=== PATIENT | female | born 1980 | race Caucasian/White ===

== ENCOUNTER 2017-02-07 06:00 | Inpatient (IN) | payer OTHER ==
[2017-02-07] MEDS ORDERED: LACTATED RINGERS SOLUTION 500 ML IV SCH ×2 (06:15→06:45)
[2017-02-07] MEDS ORDERED: CITRIC ACID/SODIUM CITRATE 30 ML UNIT-DOSE CUP PO ONE (06:15)
[2017-02-07 06:41] VITALS: BMI 35.3
[2017-02-07 07:08] LABS: BASOPHIL 0.5 % (0-2.0); EOSINOPHIL 1.2 % (0-4.5); MCH 29.6 pg (25.7-33.7); MCHC 33.5 g/dl (32.0-36.0); MEAN CELL VOLUME 88.3 fl (80-96); MEAN PLT VOLUME 11.8 fl (7.5-11.1); PLATELET COUNT 85 K/MM3 (134-434); RDW 15.7 % (11.6-15.6); WHITE BLOOD COUNT 8.8 K/mm3 (4.0-10.0)
[2017-02-07 07:47] LABS: URIC ACID 3.6 mg/dL (2.6-7.2)
[2017-02-07 07:49] LABS: ALBUMIN 2.9 g/dl (3.4-5.0); ALK PHOS 208 U/L (45-117); ANION GAP 9 (8-16); BILIRUBIN,TOTAL 0.3 mg/dL (0.2-1.0); CALCIUM 8.8 mg/dL (8.5-10.1); CO2 23 mmol/L (21-32); CREATININE 0.4 mg/dL (0.55-1.02); GLUCOSE,RANDOM 78 mg/dL (74-106); SGOT/AST 14 U/L (15-37); SGPT/ALT 12 U/L (12-78); TOT PROT 6.3 g/dl (6.4-8.2)
--- NOTE | 2017-02-07 08:00 | HP ---
Past Medical History - Primary Care Physician PCP:: Batsheva Massey - Admission Chief Complaint: 36 yrs , 40.3 weeks , previous c/section, suspected efw 9lbs by sono on 02/06/17 , not in labor, refrains from , requests repeat c/section. 02/06/17 sono report bpp 8/8, [id number], .nst was reactive. pt incidendatlly is noted to have gestational thrombocytopenia . pt was followed for plt q 1weekly inthe range of 117, 111, 108 in last 3 weeks . cmp & uric acid was normal. History of Present Illness: PNC at [address] [place] [address] .wt gain 29 lbs work up : O Pos, Hbsag neg, Rpr nr,Rubella pos, Quantiferon neg,Hiv neg , Gbs neg, 1 hr [id number], sge was labelled as GDM, she was referred to [facility], was monitoring BGM at home as per protocol & she was controlled with diet . [facility] sonograms for growth & GDM consults were reviewed .she was monitored by [facility] & NST NT screen was not done. . Quad screen was neg History Source: Patient, Medical Record Limitations to Obtaining History: No Limitations - Past Medical History SUPPLY TECHNICIAN: No: CVA, Migraine, Seizure, Other (no headache or blured visions) Cardiovascular: No: Aortic Insufficiency, Murmur Pulmonary: No: Asthma Gastrointestinal: No: Other (no epigastric pain) Renal/: No: UTI ...: 2 ...Para: 1 ...Term: 1 (primary lftc/s 08/19/07 FTP in labor [facility] 7 lbs ) ...LMP: 04/04/16 ... Weeks Gestation by Dates: 40.1 ...EDC by Dates: 02/06/17 ...EDC by Sono: 02/04/17 (40.3 weeks by sono ) Heme/Onc: Yes: Anemia. No: Bleeding Disorder Infectious Disease: No: HIV, STD's Psych: No: Addictions, Anxiety, Bipolar, Depression, Schizophrenia Endocrine: Yes: Other (gestational diabetes, diet controlled). No: Diabetes Insipidus, Diabetes Mellitus - Past Surgical History Past Surgical History: Yes: (08/19/2007) Hx Myomectomy: No Hx Transabdominal Cerclage: No - Smoking History Smoking history: Never smoked - Alcohol/Substance Use Hx Alcohol Use: No History of Substance Use: reports: None Home Medications - Allergies Allergies/Adverse Reactions: Allergies Allergy/AdvReac Type Severity Reaction Status Date / Time Penicillins Allergy Mild Itching Verified 02/07/17 09:02 - Home Medications Home Medications: Ambulatory Orders Iron 1 tab PO DAILY 02/06/17 Vitamins 1 tab PO DAILY 02/06/17 Physical Exam - Maternity Vital Signs: Vital Signs Temperature 98 F 02/07/17 06:43 Pulse Rate 80 02/07/17 06:43 Respiratory Rate 20 02/07/17 06:43 Blood Pressure 122/62 02/07/17 06:43 O2 Sat by Pulse Oximetry (%) Constitutional: Yes: Well Nourished, No Distress, Obese Eyes: Yes: WNL HENT: Yes: WNL Neck: Yes: WNL Cardiovascular: Yes: WNL Lungs: Clear to auscultation Breast(s): Yes: WNL - Abdominal Exam/OB Fundal Height: 40 Number of Fetuses: Single Presentation: Vertex Contractions: Yes Regularity: Irregular Intensity: Unaware (7-10 min) Monitor Mode: External Heart Rate (range): 140-150 Heart Rate Location: [facility] Category: I Accelerations: Uniform Decelerations: None - Vaginal Exam/OB Vaginal Bleediing: No Speculum Exam: No Dilatation (cm): close Effacement (%): unefface Amniotic Membrane Status: Intact Presentation: Vertex/Position Station: -3 - Physical Exam Musculoskeletal: Yes: WNL Extremities: Yes: WNL. No: Calf Tenderness Edema: Yes Edema: LLE: 1+, RLE: 1+ Integumentary: Yes: Incision (old pfannensteil scar) Deep Tendon Reflex Grade: Normal +2 ...Motor Strength: WNL Psychiatric: Yes: WNL, Alert, Oriented - Labs Lab Results: CBC, BMP 02/07/17 06:25 02/07/17 06:25 Laboratory Tests 02/06/17 02/06/17 02/06/17 11:27 11:27 12:06 INR 1.00 PTT (Actin FS) 25.3 L GGT AST ALT Urine Protein Negative RPR Titer Nonreactive 02/07/17 02/07/17 06:25 06:25 INR PTT (Actin FS) GGT 10 AST 14 L ALT 12 Urine Protein RPR Titer Hemorrhage Risk Assessment - Risk Factors Medium Risk Factors: Yes: Prior , uterine surgery,or multiple laparotomies Risk Score: 1 Risk Level: Medium Risk Problem List - Problems (1) Post-term , 40-42 weeks of gestation Code(s): O48.0 - POST-TERM (2) Previous section complicating Code(s): O34.219 - MATERNAL CARE FOR UNSP TYPE SCAR FROM PREVIOUS DEL (3) Gestational diabetes mellitus (GDM) affecting Code(s): O24.419 - GESTATIONAL DIABETES MELLITUS IN , UNSP CONTROL (4) White classification A1 gestational diabetes mellitus (GDM), diet controlled Code(s): O24.410 - GESTATIONAL DIABETES MELLITUS IN , DIET CONTROLLED (5) Gestational thrombocytopenia without hemorrhage in third trimester Code(s): O99.113 - OTH DIS OF BLD/BLD-FORM ORG/IMMUN MECHNSM COMP PREG, 3RD TRI D69.6 - THROMBOCYTOPENIA, UNSPECIFIED Assessment/Plan 36 yrs , 40.3 weeks , previous c/section, gbs neg,, GDM diet controlled , not in labor, gestatioanl thrombocytopenia, HELLP syndrome ruled out requests for repeat c/section. Plan repeat c/section
[2017-02-07] MEDS ORDERED: ONDANSETRON 4 MG/2 ML VIAL IVPUSH PRN (08:01)
[2017-02-07] MEDS ORDERED: SENNOSIDES/DOCUSATE COMBO (SENNA PLUS) TABLET (UD) PO PRN (09:27)
[2017-02-07] MEDS ORDERED: METHYLERGONOVINE MALEATE 0.2 MG/1 ML AMP IM PRN (09:27)
[2017-02-07] MEDS ORDERED: OXYTOCIN 20 UNITS in 0.9% NS 1,000 ML IV SCH (09:30)
--- NOTE | 2017-02-07 09:40 | PN ---
Delivery - Delivery Section: Repeat, Low Flap Transverse (40.3 weeks, previous c/s, GDM , diet controlled, gestational thrombocytopenia) Type of Anesthesia: Spinal EBL (cc): 650 (domínguez output 100ml leora color ) Delivery, Single - Stages of Labor Date of Delivery: 02/07/17 Time of Delivery: 08:40 Time Placenta Delivered: 08:41 Placenta: Yes: Manual Removal, Uterine Exploration - Condition of Infant Conventional Mortgage Underwriter/Grooming Assistant Present: No Infant Gender: Male Weight: 7 lb 8 oz Position: Right, OT (cord around neckx1) Total Hours ROM (Hrs/Mins): 1 minute - 1 Minute Total Score: 9 5 Minutes Total Score: 9 - [place] Feeding Plan Initial Plan: Elected not to breastfeed exclusively throughout hospitalization Remarks - Remarks Remarks: 36 yrs, , 40.3 weeks , previous c/s, GDm diet controlled, Lo Plt count 85 , , HELLP work up neg , gbs neg. care at [address] [place] [address] . Inraop course uneventful
--- NOTE | 2017-02-07 09:49 | OP ---
Operative Note - Note: Operative Date: 02/07/17 Pre-Operative Diagnosis: 40.3 weeks, prevvious c/section, gestational thrombocytopenia, GDM diet controlled, obesity Operation: Repeat LFTC/Section Findings: 8.40 am, Baby Boy, Vx ROT position ,,Apgar9/9, Wt 7'8" Both tubes & ovaries normal Surgeon: Batsheva Massey Clothing Cutter: Ellen Byrne Anesthesiologist/FOOT AND ANKLE SURGEON: Kane Wall Anesthesia: Spinal Specimens Removed: placenta. cord blood Estimated Blood Loss (mls): 650 Drains, Volume Out (mls): 100 (floley output leora color ) Fluid Volume Replaced (mls): 1,200 (clindamycin 900mg ivpb prior to incision ) Operative Report Dictated: Yes
[2017-02-07] MEDS: IBUPROFEN 800 MG/8 ML IJ IVPB PRN (09:50)
[2017-02-07] MEDS: CLINDAMYCIN 600MG PREMIX IVPB 50 ML IVPB SCH (16:33)
--- NOTE | 2017-02-07 20:36 | OP ---
DATE OF OPERATION: 02/07/2017 PREOPERATIVE DIAGNOSIS: 40.3 weeks, previous section, gestational thrombocytopenia, gestational diabetes, diet controlled obesity. OPERATION: Repeat low transverse section. SURGEON: Batsheva Massey M.D. CORROSION ENGINEER SURGEON: Ellen Byrne M.D. ANESTHESIOLOGIST: Kane Wall M.D. ANESTHESIA: Spinal. FINDINGS: This is a 36-year-old 2 para 1-0-0-1, not in labor, sonogram done on February 06, estimated weight was 9 pounds, and the platelet count is 85. HELLP workup was negative, and patient taken for . A preoperative platelet count was 85. PROCEDURE: Patient abdomen was shaved, prepped. Najera catheter was placed. Patient was taken to operating room table. Spinal anesthesia was given. She was placed in supine position. Abdomen was painted and draped in usual manner. Pfannenstiel incision was made through previous scar, skin, subcutaneous tissue. Anterior rectus sheath was incised transversely. Bleeding points were clamped and cauterized. Rectus muscle was from the rectus sheath. The parietal peritoneum was opened vertically. Lower flap of the bladder peritoneum was incised transversely, and the lower uterine segment was isolated and it was incised transversely. Amniotic fluid was clear. Baby was delivered at 8:40 a.m. from OT position. Cord of the neck x1 was noted, and baby's oral and nasal suction was done immediately. Cord was clamped, cut. Cord blood was collected. The baby was handed over to the baby nurse. Apgars were 9 and 9. Baby weight was 7 pounds, 8 ounce. Placenta was removed completely with the membranes, and then the uterine incision was closed in 2 layers, firstly with a continuous locking with the Biosyn 0 suture, second layer was closed with a continuous intermittent locking with a Biosyn 0 sutures. Hemostasis was checked and prior bladder peritoneum was also closed with Biosyn 0 suture. Continuos sutures were taken. Irrigation and suction was done, and sponge, instrument, needle count was correct, and the closure of the abdomen was done. Parietal peritoneum was closed with the Vicryl 0 suture. Muscles were approximated together with interrupted Vicryl 0 suture. The hemostasis was checked underneath the rectus sheath flaps. Rectus sheath was closed with Vicryl 0 continuous sutures and then subcutaneous tissue. Hemostasis was verified, and subcutaneous tissue also was approximated with interrupted sutures with the Vicryl 0. Skin was mobilized from underneath the scar, and then the skin was approximated with the madina. Pressure dressing was given. Blood clots were removed from the vagina. Estimated blood loss was 650 mL. The urine output was 100 mL intraoperatively. She received 900 mg of IV clindamycin prior to the incision. Cinthia [id number] MTDD
[2017-02-08] MEDS: CLINDAMYCIN 600MG PREMIX IVPB 50 ML IVPB SCH ×2 (00:05→08:00)
[2017-02-08] MEDS: IBUPROFEN 800 MG/8 ML IJ IVPB PRN (01:13)
[2017-02-08] MEDS ORDERED: oxyCODONE HCL 5 MG TABLET PO PRN ×2 (08:00)
--- NOTE | 2017-02-08 08:37 | PN ---
Progress Note (short form) - Note Progress Note: Anesthesia postop note 36 y/o F s/p spinal anesthesia and duramorph for sction. POD #1, vss, aaox3, pain well controlled, sensory motor intact distally No anesthesia complications.
[2017-02-08 08:53] LABS: BASOPHIL 0.4 % (0-2.0); EOSINOPHIL 1.9 % (0-4.5); MCH 29.6 pg (25.7-33.7); MCHC 33.4 g/dl (32.0-36.0); MEAN CELL VOLUME 88.6 fl (80-96); MEAN PLT VOLUME 12.3 fl (7.5-11.1); NEUTROPHILS 75.5 % (42.8-82.8); PLATELET COUNT 79 K/MM3 (134-434); RDW 15.6 % (11.6-15.6); WHITE BLOOD COUNT 9.4 K/mm3 (4.0-10.0)
[2017-02-08] MEDS ORDERED: BISACODYL 10 MG SUPP.RECT RC PRN (09:27)
[2017-02-08] MEDS: ENOXAPARIN NA (PORCINE) 40 MG/0.4 ML DISP.SYRIN SQ SCH (10:00)
[2017-02-08] MEDS: PRENATAL VITAMINS W/ FOLIC ACID TABLET (FP) PO SCH (10:00)
[2017-02-08] MEDS: FERROUS SO4 325 MG TABLET (FP) PO SCH ×2 (10:00→21:17)
[2017-02-08] MEDS ORDERED: INFLUENZA VACCINE 60 MCG/0.5 ML (P/F DISP.SYRIN 16-17) IM ONE (10:00)
[2017-02-08] MEDS ORDERED: DIPHTH,PERTUSS(ACELL),TET 0.5 ML DISP.SYRIN IM ONE (10:00)
[2017-02-08] MEDS ORDERED: INFLUENZA VACCINE 45 MCG/0.5 ML (MDV 16-17) IM ONE (10:00)
[2017-02-08] MEDS: IBUPROFEN 600 MG TABLET (FP) PO PRN ×2 (11:15→23:47)
[2017-02-08] MEDS: ACETAMINOPHEN 325 MG TABLET (FP) PO PRN (11:15)
[2017-02-08] MEDS: SIMETHICONE 80 MG TAB.CHEW (FP) PO PRN ×2 (11:20→23:45)
--- NOTE | 2017-02-08 12:24 | PN ---
Post Progress Note - Subjective Subjective: doing well, sitting in the chair Post Day: 1 Type of Delivery: Repeat C/S Vital Signs: Vital Signs Temperature 98.1 F 02/08/17 08:00 Pulse Rate 88 02/08/17 08:00 Respiratory Rate 20 02/08/17 08:00 Blood Pressure 105/69 02/08/17 08:00 O2 Sat by Pulse Oximetry (%) 100 02/07/17 10:25 Breast Exam: Yes: Soft Uterus: Yes: Fundus Firm Incision: Yes: Dressing dry and intact Abdomen/GI: Yes: Abdomen soft Lochia: Yes: Rubra Lochia, amount: Small Extremities: Yes: Calves non-tender Perineum: Yes: Intact Activity: Ambulating - Labs Labs: CBC WBC 9.4 K/mm3 (4.0-10.0) 02/08/17 07:45 RBC 3.95 M/mm3 (3.60-5.2) 02/08/17 07:45 Hgb 11.7 GM/dL (10.7-15.3) 02/08/17 07:45 Hct 35.0 % (32.4-45.2) 02/08/17 07:45 MCV 88.6 fl (80-96) 02/08/17 07:45 MCHC 33.4 g/dl (32.0-36.0) 02/08/17 07:45 RDW 15.6 % (11.6-15.6) 02/08/17 07:45 Plt Count 79 K/MM3 (134-434) L 02/08/17 07:45 MPV 12.3 fl (7.5-11.1) H 02/08/17 07:45 Neutrophils % 75.5 % (42.8-82.8) 02/08/17 07:45 Lymphocytes % 13.6 % (8-40) D 02/08/17 07:45 Monocytes % 8.6 % (3.8-10.2) 02/08/17 07:45 Eosinophils % 1.9 % (0-4.5) 02/08/17 07:45 Basophils % 0.4 % (0-2.0) 02/08/17 07:45 Retic Count 1.92 % (0.5-1.5) H 02/07/17 06:25 Haptoglobin 75 mg/dL (34-200) 02/07/17 06:25 Assessment/Plan doing well taking pain meds oob reg diet
[2017-02-08] MEDS ORDERED: FERROUS SO4 325 MG TABLET (FP) PO SCH (22:00)
[2017-02-09] MEDS: PRENATAL VITAMINS W/ FOLIC ACID TABLET (FP) PO SCH (09:21)
[2017-02-09] MEDS: FERROUS SO4 325 MG TABLET (FP) PO SCH ×2 (09:21→21:17)
[2017-02-09] MEDS: ENOXAPARIN NA (PORCINE) 40 MG/0.4 ML DISP.SYRIN SQ SCH (09:21)
--- NOTE | 2017-02-09 09:47 | PN ---
Post Progress Note - Subjective Subjective: no complains .. pain scale 4/10 voiding without difficulty Post Day: 2 Type of Delivery: Repeat C/S Vital Signs: Vital Signs Temperature 97.9 F 02/09/17 08:32 Pulse Rate 77 02/09/17 08:32 Respiratory Rate 20 02/09/17 08:32 Blood Pressure 115/69 02/09/17 08:32 O2 Sat by Pulse Oximetry (%) 98 02/09/17 08:34 Breast Exam: Yes: Soft, Other (BF ). No: Engorged Uterus: Yes: Fundus Firm, Fundus below umbilicus Incision: Yes: [place]ick intact. No: Redness, Oozing Abdomen/GI: Yes: Abdomen soft, Passing flatus (bm not done ), Tolerating PO ( diet ). No: Abdominal Distention, Tender Lochia, amount: Moderate Extremities: Yes: Calves non-tender, Edema Perineum: Yes: Intact Activity: Ambulating - Labs Labs: CBC WBC 9.4 K/mm3 (4.0-10.0) 02/08/17 07:45 RBC 3.95 M/mm3 (3.60-5.2) 02/08/17 07:45 Hgb 11.7 GM/dL (10.7-15.3) 02/08/17 07:45 Hct 35.0 % (32.4-45.2) 02/08/17 07:45 MCV 88.6 fl (80-96) 02/08/17 07:45 MCHC 33.4 g/dl (32.0-36.0) 02/08/17 07:45 RDW 15.6 % (11.6-15.6) 02/08/17 07:45 Plt Count 79 K/MM3 (134-434) L 02/08/17 07:45 MPV 12.3 fl (7.5-11.1) H 02/08/17 07:45 Neutrophils % 75.5 % (42.8-82.8) 02/08/17 07:45 Lymphocytes % 13.6 % (8-40) D 02/08/17 07:45 Monocytes % 8.6 % (3.8-10.2) 02/08/17 07:45 Eosinophils % 1.9 % (0-4.5) 02/08/17 07:45 Basophils % 0.4 % (0-2.0) 02/08/17 07:45 Retic Count 1.92 % (0.5-1.5) H 02/07/17 06:25 Haptoglobin 75 mg/dL (34-200) 02/07/17 06:25 Laboratory Tests 02/07/17 02/08/17 02/08/17 19:54 06:00 10:15 POC Glucometer 66 74 93 02/08/17 02/09/17 14:24 07:03 POC Glucometer 129 82 Problem List - Problems (1) Post-term , 40-42 weeks of gestation Code(s): O48.0 - POST-TERM (2) Previous section complicating Code(s): O34.219 - MATERNAL CARE FOR UNSP TYPE SCAR FROM PREVIOUS DEL (3) Gestational diabetes mellitus (GDM) affecting Code(s): O24.419 - GESTATIONAL DIABETES MELLITUS IN , UNSP CONTROL (4) White classification A1 gestational diabetes mellitus (GDM), diet controlled Code(s): O24.410 - GESTATIONAL DIABETES MELLITUS IN , DIET CONTROLLED (5) Gestational thrombocytopenia without hemorrhage in third trimester Code(s): O99.113 - OTH DIS OF BLD/BLD-FORM ORG/IMMUN MECHNSM COMP PREG, 3RD TRI D69.6 - THROMBOCYTOPENIA, UNSPECIFIED Assessment/Plan stable. ct post op care
[2017-02-09] MEDS: IBUPROFEN 600 MG TABLET (FP) PO PRN (14:47)
[2017-02-09] MEDS: ACETAMINOPHEN 325 MG TABLET (FP) PO PRN (14:48)
[2017-02-09] MEDS: SIMETHICONE 80 MG TAB.CHEW (FP) PO PRN (14:49)
--- NOTE | 2017-02-10 02:40 | PN ---
Post Progress Note Post Day: 3 Type of Delivery: Repeat C/S Vital Signs: Vital Signs Temperature 98.6 F 02/09/17 22:00 Pulse Rate 76 02/09/17 22:00 Respiratory Rate 18 02/09/17 22:00 Blood Pressure 121/71 02/09/17 22:00 O2 Sat by Pulse Oximetry (%) 99 02/09/17 20:30 Breast Exam: Yes: Soft Uterus: Yes: Fundus Firm Incision: Yes: Aniceto intact Abdomen/GI: No: Abdomen soft, Abdominal Distention, Tender, Passing flatus, Tolerating PO, Other Lochia: No: Rubra, Serosa, Alba Extremities: No: Calves non-tender, Calf tenderness, Edema Perineum: No: Intact, Episiotomy, Laceration Activity: Ambulating - Labs Labs: CBC WBC 9.4 K/mm3 (4.0-10.0) 02/08/17 07:45 RBC 3.95 M/mm3 (3.60-5.2) 02/08/17 07:45 Hgb 11.7 GM/dL (10.7-15.3) 02/08/17 07:45 Hct 35.0 % (32.4-45.2) 02/08/17 07:45 MCV 88.6 fl (80-96) 02/08/17 07:45 MCHC 33.4 g/dl (32.0-36.0) 02/08/17 07:45 RDW 15.6 % (11.6-15.6) 02/08/17 07:45 Plt Count 79 K/MM3 (134-434) L 02/08/17 07:45 MPV 12.3 fl (7.5-11.1) H 02/08/17 07:45 Neutrophils % 75.5 % (42.8-82.8) 02/08/17 07:45 Lymphocytes % 13.6 % (8-40) D 02/08/17 07:45 Monocytes % 8.6 % (3.8-10.2) 02/08/17 07:45 Eosinophils % 1.9 % (0-4.5) 02/08/17 07:45 Basophils % 0.4 % (0-2.0) 02/08/17 07:45 Retic Count 1.92 % (0.5-1.5) H 02/07/17 06:25 Haptoglobin 75 mg/dL (34-200) 02/07/17 06:25 Assessment/Plan as above oob reg diet pain labs
[2017-02-10] MEDS: ACETAMINOPHEN 325 MG TABLET (FP) PO PRN (04:36)
[2017-02-10] MEDS: IBUPROFEN 600 MG TABLET (FP) PO PRN (04:37)
[2017-02-10 08:31] LABS: BASOPHIL 0.7 % (0-2.0); EOSINOPHIL 3.8 % (0-4.5); MCH 29.5 pg (25.7-33.7); MCHC 33.6 g/dl (32.0-36.0); MEAN CELL VOLUME 87.8 fl (80-96); MEAN PLT VOLUME 11.7 fl (7.5-11.1); NEUTROPHILS 68.9 % (42.8-82.8); PLATELET COUNT 98 K/MM3 (134-434); RDW 15.6 % (11.6-15.6)
[2017-02-10] MEDS: FERROUS SO4 325 MG TABLET (FP) PO SCH ×2 (09:12→21:36)
[2017-02-10] MEDS: PRENATAL VITAMINS W/ FOLIC ACID TABLET (FP) PO SCH (09:12)
[2017-02-10] MEDS: ENOXAPARIN NA (PORCINE) 40 MG/0.4 ML DISP.SYRIN SQ SCH (09:13)
--- NOTE | 2017-02-10 14:47 | PATH ---
Surgical Pathology Report Patient Name: RHONA RODRIGUEZ [facility]. Rec. #: [id number] /Age/Gender: 1980 (Age: 36) / F Account: [id number] Location: [facility] OBS/GARDE MANAGER Taken: 02/07/2017 Received: 02/07/2017 Reported: 02/10/2017 Physicians: Batsheva Massey M.D. Specimen(s) Received PLACENTA Clinical History , 40.2 weeks' gestation, previous c/section, gestational diabetes-diet controlled Repeat c/section Final Diagnosis PLACENTA, DELIVERY: FOCALLY DISRUPTED THIRD TRIMESTER PLACENTA WITH MILD TO MODERATE INCREASE IN PERIVILLOUS AND PRECHORIONIC FIBRIN DEPOSITION, THREE VESSEL UMBILICAL CORD, AND PLACENTAL MEMBRANES WITH FOCAL AMNION HYPERPLASIA. Electronically Signed Tank Nichols M.D. Gross Description The specimen is received fresh, labeled "placenta" and is a 504 gram, 16.5 x 14.5 x 2.5 cm placenta with attached membranes and umbilical cord. The attached membranes are garcia, translucent with focal opacities and insert marginally. The umbilical cord measures 35 cm in length and averages 1 cm in diameter. The cord inserts eccentrically, 3 cm to the nearest margin. No true knots or strictures are identified. Cut surface of the umbilical cord reveals 3 vessels. The surface is montes-blue with fibrin deposition and appropriate caliber vessels. The maternal surface is red-brown with focal defects. Sectioning reveals red-brown, spongy parenchyma. No focal lesions are identified. Pet Care Attendant sections are submitted in three cassettes as follows: 1- membrane rolls and umbilical cord; 2-3- full thickness sections of placenta. /02/09/2017 [facility]02/09/2017
[2017-02-11] MEDS: IBUPROFEN 600 MG TABLET (FP) PO PRN (02:21)
[2017-02-11] MEDS: ACETAMINOPHEN 325 MG TABLET (FP) PO PRN (02:22)
--- NOTE | 2017-02-11 08:31 | PN ---
Progress Note (short form) - Note Progress Note: pod 4 doing well, no c/o CBC, BMP 02/10/17 07:30 02/07/17 06:25 Last Vital Signs Temp Pulse Resp BP Pulse Ox 98.9 F 70 20 132/80 99 02/10/17 22:00 02/10/17 22:00 02/10/17 22:00 02/10/17 22:00 02/09/17 20:30 abdomen soft, no distension, no cva, incision dry, clean , all madina removed wound healed no calf tenderness no excess vaginal bleeding plan d/c home , rtc 1 week
[2017-02-11] MEDS: PRENATAL VITAMINS W/ FOLIC ACID TABLET (FP) PO SCH (09:31)
[2017-02-11] MEDS: FERROUS SO4 325 MG TABLET (FP) PO SCH (09:31)
[2017-02-11] MEDS: ENOXAPARIN NA (PORCINE) 40 MG/0.4 ML DISP.SYRIN SQ SCH (09:32)
--- NOTE | 2017-02-11 11:00 | DS ---
Physical Exam-SENSITIZER Vital Signs: Vital Signs Temperature 98.9 F 02/10/17 22:00 Pulse Rate 70 02/10/17 22:00 Respiratory Rate 20 02/10/17 22:00 Blood Pressure 132/80 02/10/17 22:00 O2 Sat by Pulse Oximetry (%) 99 02/09/17 20:30 Constitutional: Yes: No Distress, Obese Eyes: Yes: WNL HENT: Yes: WNL Neck: Yes: WNL Cardiovascular: Yes: WNL Respiratory: Yes: WNL Gastrointestinal: Yes: WNL, Normal Bowel Sounds, Soft, Abdomen, Obese, Other ( bm done). No: Distention Renal/: Yes: WNL, Other (voiding without difficulty) External Genitalia: Yes: Normal ....Post : Yes: Uterus firm, Uterus non-tender, Moderate lochia rubra Breast(s): Yes: WNL (BF) Musculoskeletal: Yes: WNL Extremities: Yes: WNL. No: Calf Tenderness Edema: Yes Edema: LLE: 1+, RLE: 1+ Wound/Incision: Yes: Clean/Dry, Well Approximated, Steri Strips, Open to air, [place] Removed. No: Draining, Reddened, Bleeding, Excoriated Neurological: Yes: WNL, Alert, Pre-Existing Deficit ...Motor Strength: WNL Psychiatric: Yes: WNL, Alert, Oriented Labs: CBC, BMP 02/10/17 07:30 02/07/17 06:25 Delivery - Delivery Section: Repeat, Low Flap Transverse (40.3 weeks, previous c/s, GDM , diet controlled, gestational thrombocytopenia) Type of Anesthesia: Spinal EBL (cc): 650 (domínguez output 100ml leora color ) Delivery, Single - Stages of Labor Date of Delivery: 02/07/17 Time of Delivery: 08:40 Time Placenta Delivered: 08:41 Placenta: Yes: Manual Removal, Uterine Exploration - Condition of Infant Bilingual Administrative Assistant/Steel Rule Die Maker Apprentice Present: No Infant Gender: Male Weight: 7 lb 8 oz Position: Right, OT (cord around neckx1) Total Hours ROM (Hrs/Mins): 1 minute - 1 Minute Total Score: 9 5 Minutes Total Score: 9 - Feeding Plan Initial Plan: Elected not to breastfeed exclusively throughout hospitalization Remarks - Remarks Remarks: 36 yrs, , 40.3 weeks , previous c/s, GDm diet controlled, Lo Plt count 85 , , HELLP work up neg , gbs neg. care at [address] [place] [address] . Inraop course uneventful . post op course uneventful. discharge today. Discharge Summary Reason For Visit: Current Active Problems Delivery by (planned) section occurring after 37 completed weeks of gestation but before 39 completed weeks gestation due to (spontaneous) onset of labor, with mention of complication (Acute) Gestational diabetes mellitus (GDM) affecting (Acute) Gestational thrombocytopenia without hemorrhage in third trimester (Acute) Post-term , 40-42 weeks of gestation (Acute) Previous section complicating (Acute) White classification A1 gestational diabetes mellitus (GDM), diet controlled ( Acute) Condition: Stable - Instructions Diet, Activity, Other Instructions: Post Instructions DIET: Continue good diet high in protein, calcium, and iron rich foods. Drink at least eight (8) glasses of water daily in addition to other fluids. Ct Diabetic Diet MEDICATIONS: Continue vitamins and iron as previously directed. Motrin and Tylenol may be taken for minor discomfort. ACTIVITY: Mild to moderate exercise may be started in two (2) weeks. Take frequent rest periods. Resume normal activity after six (6) week check up. WOUND CARE OF OPERATIVE SITE: Continue use of perineal bottle until vaginal discharge stops. Keep area clean. Shower daily. Keep abdominal wound dry. Report any drainage or redness to physician. Tub baths, tampons and douches are not permitted for [address] Breast feeding & or Bottle feeding BREAST CARE: (For those that are not breast feeding): If engorgement occurs: Wear tight fitting bra. Take Tylenol or Motrin for pain. Apply cold packs (ice in bags to each breast ) FAMILY PLANNING: There are many control alternatives to pursue and they should be discussed at your first office visit. You may resume sexual activity after your six (6) week check up. (Remember, breast feeding is not a contraceptive) NEXT PHYSICIAN APPOINTMENT: Be certain to call for a one (1 ) week appointment, unless otherwise directed. . RTC for wound check, call [phone] for appt Call Clinic or got to Emergency Dept if you have any of the following: Heavy vaginal bleeding Painful urination Leg pain Unusual odor noted to vaginal bleeding High fever Red streaking noted on breast Referrals: Batsheva Massey MD [Staff Physician] - Disposition: HOME - Home Medications Comprehensive Discharge Medication List: Ambulatory Orders Iron 1 tab PO DAILY 02/06/17 Vitamins 1 tab PO DAILY 02/06/17 Acetaminophen [Tylenol .Regular Strength -] 650 mg PO Q4H PRN #0 tablet Ibuprofen [Motrin -] 600 mg PO Q4H PRN #30 tablet 02/09/17
[2017-02-11 11:44] VITALS: BP 136/77; PULSE 64; TEMP 98.2
== END 2017-02-11 14:20 | disposition home or self-care (01) | DRG 540 ==
LOC: JLDR 06:00 → J3W 10:47
PROVIDERS: ADMIT Obstetrics & Gynecology; ATTEND Obstetrics & Gynecology
PROC: 10D00Z1 Extraction of Products of Conception, Low, Open Approach (ICD-10-PCS; principal; 2017-02-07)
DX: O48.0 Post-term pregnancy (principal); O24.420 Gestational diabetes mellitus in childbirth, diet controlled; O99.12 Other diseases of the blood and blood-forming organs and certain disorders involving the immune mechanism complicating childbirth; D69.6 Thrombocytopenia, unspecified; O34.211 Maternal care for low transverse scar from previous cesarean delivery; O99.214 Obesity complicating childbirth; E66.8 Other obesity; Z68.35 Body mass index [BMI] 35.0-35.9, adult; Z71.3 Dietary counseling and surveillance; Z3A.40 40 weeks gestation of pregnancy; Z37.0 Single live birth
CPT/HCPCS: 36415; 80053; 82977; 83010; 84550; 85025; 85044; 88307-TC; 90686; 90715; 94010; G0008

== ENCOUNTER 2018-06-10 12:24 | Emergency (ER) | payer OTHER ==
[2018-06-10 12:56] VITALS: BP 122/68; PULSE 73; TEMP 99.3; BMI 35.2
[2018-06-10 13:24] LABS: URINE APPEARANCE CLEAR; URINE BILIRUBIN NEGATIVE (<2.0 mg/dL); URINE COLOR STRAW; URINE GLUCOSE (UA) NEGATIVE (NEGATIVE); URINE KETONE NEGATIVE (NEGATIVE); URINE NITRITE NEGATIVE (NEGATIVE); URINE PROTEIN NEGATIVE (NEGATIVE); URINE UROBILINOGEN NEGATIVE mg/dL (0.2-1.0)
--- NOTE | 2018-06-10 13:28 | PDOC ---
History of Present Illness - General Chief Complaint: Hematuria Stated Complaint: BLOOD IN URINE Time Seen by Provider: 06/10/18 12:56 History Source: Patient - History of Present Illness Timing/Duration: reports: other Quality: reports: burning Past History - Past Medical History Allergies/Adverse Reactions: Allergies Allergy/AdvReac Type Severity Reaction Status Date / Time Penicillins Allergy Mild Itching Verified 06/10/18 12:57 Home Medications: Ambulatory Orders Nitrofurantoin Monohyd/M-Cryst [Macrobid -] 100 mg PO BID #14 capsule 06/10/18 Asthma: No Cancer: No Cardiac Disorders: No COPD: No Diabetes: No HTN: No Seizures: No Thyroid Disease: No - Suicide/Smoking/Psychosocial Hx Smoking History: Never smoked Have you smoked in the past 12 months: No Information on smoking cessation initiated: No Hx Alcohol Use: No Drug/Substance Use Hx: No Substance Use Type: None Hx Substance Use Treatment: No Review of Systems - Review of Systems Constitutional: No: Chills, Fever ABD/GI: No: Nausea, Vomiting : Yes: Dysuria, Hematuria. No: Flank Pain *Physical Exam - Vital Signs Last Vital Signs Temp Pulse Resp BP Pulse Ox 99.3 F 73 18 122/68 100 06/10/18 12:50 06/10/18 12:50 06/10/18 12:50 06/10/18 12:50 06/10/18 12:50 - Physical Exam General Appearance: Yes: Apparent Distress. No: Appropriately Dressed HEENT: positive: Normal Voice Neck: positive: Supple Respiratory/Chest: negative: Respiratory Distress Gastrointestinal/Abdominal: positive: Soft. negative: Tender Musculoskeletal: negative: CVA Tenderness Integumentary: positive: Dry, Warm Neurologic: positive: Fully Oriented, Alert, Normal Mood/Affect Medical Decision Making - Medical Decision Making 06/10/18 13:27 38-year-old female, no significant history here with dysuria and hematuria since last night. No flank pain, nausea, vomiting, fever or chills. No history of UTIs or kidney stones. Patient well-appearing and stable with unremarkable exam. See exam R/o UTI -ua/cx pending 06/10/18 13:37 Patient's test positive. Patient did not know she was . Pt . Has a history of irregular menses and states last time she had her menstruation was 4 months ago. Currently only has bleeding in her urine, otherwise denies vaginal bleeding at this time and no abdominal pain, flank pain , nausea or vomiting. Will get beta and send for ultrasound. RH+ per records 2016. Anticipate discharge with antibiotics and OB follow-up for care 06/10/18 15:07 Beta 343. Ultrasound with no evidence of IUP and no obvious evidence of ectopic at this time. Possibilities include early and will have patient f/u in 48 hours for reassessment to r/o ectopic. Patient remains stable and asymptomatic while in ED. Given results. Told to follow-up with OB in 2 days or return to ER for reassessment. To take antibiotics as directed for UTI. Reasons to return to ER sooner discussed with patient *DC/Admit/Observation/Transfer Diagnosis at time of Disposition: Dysuria Qualifiers: Weeks of gestation: unspecified Qualified Code(s): Z34.90 - Encounter for supervision of normal , unspecified, unspecified trimester - Discharge Dispostion Disposition: HOME Condition at time of disposition: Good - Prescriptions Prescriptions: Nitrofurantoin Monohyd/M-Cryst [Macrobid -] 100 mg PO BID #14 capsule - Referrals Referrals: Doris Limon MD [Staff Physician] - - Patient Instructions Printed Discharge Instructions: Managing Symptoms of , Urinary Tract Infection Additional Instructions: Sherron exmenes de hoy muestran que est embarazada. El nivel de la hormona en schroeder jung es 343. Schroeder HR es positivo. Schroeder ultrasonido hoy no mostr ninguna evidencia de embarazo, lo que podra indicar que es demasiado temprano para jossie un embarazo. Tambin existe la posibilidad de un embarazo ectpico que es un embarazo fuera de schroeder tero, sin embargo, no haba evidencia de eso hoy en schroeder ultrasonido. En cualquier cristi, deber volver a evaluarse en 2 jaimes. Realice un seguimiento con schroeder obstetra / gineclogo en 2 jaimes o ruben un seguimiento con el Dr. Braxton mckeon OB al [phone]. Si no puede ser visto por un obstetra / gineclogo en 2 jaimes, regrese a la bebe de emergencias para zac nueva evaluacin. Eudora es importante [place] antibiticos segn lo indicado para UTI Print Language: CONGOLESE - Post Discharge Activity
[2018-06-10 13:29] LABS: URINE LEUK ESTERASE 1+ (NEGATIVE)
[2018-06-10 13:30] LABS: HCG,QUALITATIVE URINE POSITIVE
[2018-06-10 13:35] LABS: EPI CELLS RARE /HPF (FEW); URINE BACTERIA RARE /hpf (NONE SEEN)
== END 2018-06-10 15:12 | disposition home or self-care (01) ==
LOC: JER 12:24
DX: O26.891 Other specified pregnancy related conditions, first trimester (principal); R30.0 Dysuria; Z3A.01 Less than 8 weeks gestation of pregnancy; Z88.0 Allergy status to penicillin
CPT/HCPCS: 36415; 76817-TC; 81003; 81015; 84702; 84703; 87086; 87186; 99281-25

== ENCOUNTER 2020-07-19 14:20 | Emergency (ER) | payer OTHER ==
[2020-07-19 14:37] VITALS: BP 138/78; PULSE 98; TEMP 98.3; BMI 32.9
[2020-07-19 15:17] LABS: BASO % 2.6 % (0-2.0); EOS % 0.8 % (0-4.5); HEMATOCRIT 40.6 % (32.4-45.2); HEMOGLOBIN 13.7 GM/dl (10.7-15.3); MCHC 33.8 g/dl (32.0-36.0); MEAN CELL VOLUME 88.8 fl (80-96); MEAN PLT VOLUME 12.2 fl (7.5-11.1); MONO % 4.7 % (3.8-10.2); NEUT % 73.9 % (42.8-82.8); PLATELET COUNT 181 K/MM3 (134-434); RBC 4.57 M/mm3 (3.60-5.2); WHITE BLOOD COUNT 10.2 K/mm3 (4.0-10.8)
[2020-07-19 15:20] LABS: ALBUMIN 4.2 g/dl (3.4-5.0); BILIRUBIN,TOTAL 0.6 mg/dl (0.2-1); CREATININE 0.5 mg/dl (0.55-1.3); POTASSIUM 3.8 mmol/L (3.5-5.1); TOT PROT 7.4 g/dl (6.4-8.2)
--- NOTE | 2020-07-19 15:25 | PDOC ---
Documentation entered by Maeve Irene SCRIBE, acting as scribe for Yeni Meredith MD. Yeni Meredith MD: This documentation has been prepared by the scribe, Maeve Irene SCRIBE, under my direction and personally reviewed by me in its entirety. I confirm that the documentation accurately reflects all work, treatment, procedures, and medical decision making performed by me. History of Present Illness - General Chief Complaint: Vaginal Bleeding Stated Complaint: VAGINAL BLEEDING, Time Seen by Provider: 07/19/20 14:23 History Source: Patient Exam Limitations: No Limitations - History of Present Illness Initial Comments: 07/19/20 14:46 The patient is a 40-year-old female, , currently , confirmed home last week, unsure how far along with no reported past medical history who presents to the emergency department with vaginal spotting since last night associated with mild lower abdominal cramping, currently 3/10. The patient reports she noticed blood on the tissue while wiping last night. The patient reports less blood is noted today, however there was still blood on the tissue. otherwise denies nausea, vomiting, diarrhea, fever, chills, dysuria, urgency, or frequency to urinate. Denies [facility] follow up for the . Allergies: None Past Medical History: None reported Social history: Lives with family. No tobacco, ETOH or drug use. Surgical history: Meds: as documented in EMR PMD: None reported LMP: March 21 (irregular cycles) - last approx 4 months ago 07/19/20 16:09 Past History - Medical History Allergies/Adverse Reactions: Allergies Allergy/AdvReac Type Severity Reaction Status Date / Time ampicillin Allergy Verified 07/19/20 14:54 Home Medications: Ambulatory Orders NK [No Known Home Medication] 07/10/18 Asthma: No Cancer: No Cardiac Disorders: No COPD: No Diabetes: No HTN: No Seizures: No Thyroid Disease: No - Psycho-Social/Smoking History Smoking History: Never smoked Have you smoked in the past 12 months: No Review of Systems - Review of Systems Able to Perform ROS?: Yes Comments:: 07/19/20 14:44 GENERAL/CONSTITUTIONAL: No fever or chills. No weakness. no sweats. HEAD, EYES, EARS, NOSE AND THROAT: No headache/dizziness CARDIOVASCULAR: No chest pain or palpitations, syncope or edema. RESPIRATORY: No SOB, cough, wheezing, or hemoptysis. GASTROINTESTINAL No nausea/vomiting. No diarrhea or constipation. No bloody stools. +abdominal cramping. GENITOURINARY: +vaginal spotting. No hematuria, dysuria, frequency, urgency or other changes. MUSCULOSKELETAL: No joint or muscle swelling or pain. No decreased range of motion. No neck or back pain. SKIN: No rash or changes in skin color or lesions. No wounds. NEUROLOGIC: alert and oriented appropriately No headache, dizziness, loss of consciousness, or change in strength/sensation. No gait instability. HEMATOLOGIC/LYMPHATIC: No anemia, easy bruising/bleeding, or history of blood clots. No swollen lymph nodes ALLERGIC/IMMUNOLOGIC: No allergies PSYCH: no anxiety/depression All other systems reviewed and negative, or as documented in HPI. 07/19/20 16:10 *Physical Exam - Physical Exam 07/19/20 14:41 General: Well appearing, awake and alert, NAD. HEENT: NCAT, PERRL, EOMI, clear conjunctiva, anicteric, moist mucous membranes, clear oropharynx, no oral lesions.. Neck: neck supple, FROM Resp: CTAB, normal and even respirations, no respiratory distress CVS: RRR, no murmurs, 2+ peripheral pulses throughout, no peripheral edema Abdomen: soft, NTND, no rebound or guarding. No CVAT. /pelvic exam: +clear mucus, maroon colored blood with clots, normal external genitalia, no lesions, no CMT, no adnexal tenderness. Smooth and pink cervix, closed. Back: nontender, normal inspection and ROM] MSK: no edema, [place] x4, ROM intact. No clubbing or cyanosis. normal bulk and tone. Extremities: no calf tenderness Neuro: alert, oriented appropriately; no focal neurologic deficits Skin: warm and well perfused, cap refill <2 sec, normal color 07/19/20 15:25 ED Treatment Course - LABORATORY CBC & Chemistry Diagram: 07/19/20 14:45 07/19/20 14:45 Medical Decision Making - Medical Decision Making 07/19/20 15:25 Vital Signs Temp Pulse Resp BP Pulse Ox 98.3 F 98 H 18 138/78 100 07/19/20 14:20 07/19/20 14:20 07/19/20 14:20 07/19/20 14:20 07/19/20 14:20 vitals wnl, reviewed DDx female VB: ectopic , miscarriage, demise, subchorionic hematoma, retained POC, normal first trimester bleeding, UTI in in . Fibroid uterus, vaginitis, infection, electrolyte/metabolic derangements, anemia. Rh positive, no rhogam indicated VS wnl, normotensive, no tachy or hypoxia/respiratory distress. abdomen benign on reeval and no peritoneal findings, no VB here, controlled Beta hcg labs and lytes wnl. UA with some blood, no s/s to suggest infection, can f/u urine culture. has some epithelials, which is likely contamination/not quite clean sample. TVUS with twin , however, at 6 weeks/4 days, could be early; no FHR identified no pelvic FF, no ovarian torsion. no adnexal masses Dispo: OB followup provided, bleeding precautions; return to ED if persistent and heavy vaginal bleeding, persistent pelvic pain not relieved by your prescribed medications, dizziness, shortness of breath, new and persistent fevers, other foul smelling discolored vaginal discharge, or for any other concerns. 07/19/20 15:57 07/19/20 15:58 07/19/20 16:10 07/19/20 16:11 Discharge - Discharge Information Problems reviewed: Yes Clinical Impression/Diagnosis: Threatened in early , Vaginal bleeding affecting early , Twin gestation in first trimester Condition: Stable Disposition: HOME - Admission No - Follow up/Referral Referrals: Jacob Mitchell MD [Staff Physician] - [facility] [Provider Group] - Patient Discharge Instructions Patient Printed Discharge Instructions: DI for Threatened , DI for Vaginal Bleeding During Additional Instructions: You were evaluated in the emergency department for your bleeding, you are with twins. However your ultrasound does not show a heart beat at this time, which could mean it's very early or it could become miscarriage - you need to follow up on your and trend your beta hcg number (which determines how you are.) Follow-up with [facility] specialist for pregnancies. Referrals have been provided. You may start to experience abdominal cramping, bleeding like you are having a period.. If worsening symptoms return sooner for evaluation, which may include but not limited to headache, passing out, chest pain, shortness of breath, significant bleeding, abdominal pain, neurologic changes, lethargy or confusion. Your likely to experience symptoms like you are having a period in the setting of a miscarriage Le evaluaron en el departamento de emergencias por hart sangrado, est embarazada de gemelos. Sin embargo, hart ultrasonido no muestra un latido cardaco en jas momento, lo que podra significar que es muy temprano o podra convertirse en un aborto espontneo; debe hacer un seguimiento de hart embarazo y medir la tendencia de hart nmero de beta hcg (que determina qu garcia embarazada est). Seguimiento con obstetra / gineclogo para embarazos. Se harding proporcionado referencias. Puede comenzar a experimentar calambres abdominales, sangrado arturo si tuviera un perodo. Si los sntomas empeoran regresan antes para hart evaluacin, que pueden incluir, entre otros, dolor de sravan, desmayo, dolor en el pecho, dificultad para respirar, sangrado significativo, dolor abdominal, cambios neurolgicos, letargo o confusin. Es probable que experimente sntomas arturo si estuviera teniendo un perodo en el contexto de un aborto espontneo Print Language: YI - Post Discharge Activity
[2020-07-19 15:35] LABS: EPITHELIAL CELLS MANY /hpf
== END 2020-07-19 16:15 | disposition home or self-care (01) ==
LOC: FER 14:20
DX: O20.0 Threatened abortion (principal)
CPT/HCPCS: 36415; 76817-TC; 80053; 81003; 81015; 84702; 84703; 85025; 86850; 86900; 86901; 87086; 99284-25

== ENCOUNTER 2020-07-20 09:06 | Emergency (ER) | payer OTHER ==
[2020-07-20 09:12] VITALS: TEMP 98; BMI 33.0
[2020-07-20] MEDS ORDERED: ACETAMINOPHEN 325 MG TABLET (FP) PO ONE (09:44)
[2020-07-20] MEDS ORDERED: ACETAMINOPHEN 500 MG TABLET (FP) ONE (09:45)
[2020-07-20 10:14] LABS: BASO % 0.5 % (0-2.0); EOS % 1.4 % (0-4.5); HEMATOCRIT 40.3 % (32.4-45.2); HEMOGLOBIN 13.4 GM/dL (10.7-15.3); LYMPH % 15.2 % (8-40); MCH 28.9 pg (25.7-33.7); MCHC 33.2 g/dl (32.0-36.0); MEAN CELL VOLUME 87.2 fl (80-96); MEAN PLT VOLUME 11.4 fl (7.5-11.1); MONO % 5.4 % (3.8-10.2); NEUT % 77.5 % (42.8-82.8); PLATELET COUNT 166 K/MM3 (134-434); RBC 4.62 M/mm3 (3.60-5.2); RDW 13.6 % (11.6-15.6); WHITE BLOOD COUNT 11.2 K/mm3 (4.0-10.0)
--- NOTE | 2020-07-20 11:33 | PDOC ---
History of Present Illness - General Chief Complaint: Vaginal Bleeding Stated Complaint: 6WKS/BLEEDING Time Seen by Provider: 07/20/20 09:37 History Source: Patient Exam Limitations: No Limitations Past History - Travel History Traveled outside of the country in the last 30 days: No Close contact w/someone who was outside of country & ill: No - Medical History Allergies/Adverse Reactions: Allergies Allergy/AdvReac Type Severity Reaction Status Date / Time ampicillin Allergy Verified 07/20/20 09:11 Home Medications: Ambulatory Orders NK [No Known Home Medication] 07/10/18 Asthma: No Cancer: No Cardiac Disorders: No COPD: No Diabetes: No HTN: No Seizures: No Thyroid Disease: No - Reproductive History Is Patient Now?: Yes (LMP 03/2020) (#): 4 Para: 2 Cervical CA: No Dysfunctional Uterine Bleeding: No Ectopic : No Endometrial CA: No Polycystic Ovaries: No Tubal Ligation: No Spontaneous : 2 - Psycho-Social/Smoking History Smoking History: Never smoked Have you smoked in the past 12 months: No - Substance Abuse Hx (Audit-C & DAST Scrn) How often the patient has a drink containing alcohol: Never Score: In Men: 4 or > Positive; In Women: 3 or > Positive: 0 Screen Result (Pos requires Nsg. Audit-10AR): Negative Review of Systems - Review of Systems Able to Perform ROS?: Yes Comments:: 07/20/20 11:27 CONSTITUTIONAL: Absent: fever, chills, diaphoresis, generalized weakness, malaise, loss of appetite HEENT: Absent: rhinorrhea, nasal congestion, throat pain, throat swelling, difficulty swallowing, mouth swelling, ear pain, eye pain, visual Changes CARDIOVASCULAR: Absent: chest pain, loss of consciousness, palpitations, irregular heart rate, peripheral edema RESPIRATORY: Absent: cough, shortness of breath, dyspnea with exertion, orthopnea, wheezing, stridor, hemoptysis GASTROINTESTINAL: Absent: abdominal pain, abdominal distension, nausea, vomiting, diarrhea, constipation, melena, hematochezia GENITOURINARY: Present: vaginal bleeding Absent: dysuria, frequency, urgency, hesitancy, hematuria, flank pain, genital pain MUSCULOSKELETAL: Absent: myalgia, arthralgia, joint swelling SKIN: Absent: rash, itching, pallor HEMATOLOGIC/IMMUNOLOGIC: Absent: easy bleeding, easy bruising, lymphadenopathy, frequent infections ENDOCRINE: Absent: unexplained weight gain, unexplained weight loss, heat intolerance, cold intolerance NEUROLOGIC: Absent: headache, focal weakness or paresthesias, dizziness, unsteady gait, seizure, mental status changes, bladder or bowel incontinence PSYCHIATRIC: Absent: anxiety, depression, suicidal or homicidal ideation, hallucinations. Is the patient limited Wallisian proficient: No *Physical Exam - Vital Signs Last Vital Signs Temp Pulse Resp BP Pulse Ox 98 F 76 18 119/83 99 07/20/20 09:07 07/20/20 09:07 07/20/20 09:07 07/20/20 09:07 07/20/20 09:07 - Physical Exam 07/20/20 11:31 GENERAL: Well developed, well nourished. Awake and alert. No acute distress. HEENT: Normocephalic, atraumatic. PERRLA, EOMI. No conjunctival pallor. Sclera are non- icteric. Moist mucous membranes. NECK: Supple. Full ROM. CARDIOVASCULAR: Regular rate and rhythm. No murmurs, rubs, or gallops. Distal pulses are 2+ and symmetric. PULMONARY: No evidence of respiratory distress. Lungs clear to auscultation bilaterally. No wheezing, rales or rhonchi. ABDOMINAL: Soft. Non-tender. Non-distended. No rebound or guarding. No organomegaly. Normoactive bowel sounds. MUSCULOSKELETAL Normal range of motion at all joints. No bony deformities or tenderness. No CVA tenderness. EXTREMITIES: No cyanosis. No clubbing. No edema. No calf tenderness. SKIN: Warm and dry. Normal capillary refill. No rashes. No jaundice. NEUROLOGICAL: Alert, awake, appropriate. Cranial nerves 2-12 intact. No deficits to light touch and temperature in face, upper extremities and lower extremities. No motor deficits in the in face, upper extremities and lower extremities. Normoreflexic in the upper and lower extremities. Normal speech. Toes are down-going bilaterally. Gait is normal without ataxia. PSYCHIATRIC: Cooperative. Good eye contact. Appropriate mood and affect. PELVIC: External genitalia normal without lesions. Vaginal vault with bright red blood, no clots. Cervix is unable to be visualized d/t blood. No cervical motion tenderness. Uterus is nontender and normal in size. Adnexa are nontender and wi thout masses. ED Treatment Course - LABORATORY CBC & Chemistry Diagram: 07/20/20 08:30 - ADDITIONAL ORDERS Additional order review: Laboratory Results 07/20/20 08:30 Beta HCG, Quant 5665.8 07/20/20 08:30 RBC 4.62 MCV 87.2 MCHC 33.2 RDW 13.6 MPV 11.4 H Neutrophils % 77.5 Lymphocytes % 15.2 Monocytes % 5.4 Eosinophils % 1.4 Basophils % 0.5 - RADIOLOGY Radiology Studies Ordered: Category Date Time Status TRANSVAGINAL US PREG [US] Stat Ultrasound 07/20/20 10:32 Ordered - Medications Given in the ED: ED Medications Discontinued Medications Generic Name Dose Route Start Last Admin Trade Name Freq PRN Reason Stop Dose Admin Acetaminophen 1,000 mg 07/20/20 09:44 07/20/20 10:12 Tylenol - PO 07/20/20 09:45 1,000 mg ONCE ONE Administration Medical Decision Making - Medical Decision Making 07/20/20 11:33 Patient is 40-year-old female G4, P2, currently 6 weeks , presents to the ER for increased vaginal bleeding. She was evaluated [facility] yesterday and noted to have twin gestation, IUP. She states that she represents to the ER because he is having increasing pain and bleeding. She has not tried taking any medication at home for the pain. Denies lightheadedness, dizziness, nausea, vomiting and diarrhea. A/P: Vaginal bleeding On exam patient has increased vaginal bleeding from yesterday's note. Currently she has bright red blood in the vaginal vault, unable to visualize the cervix due to the amount of bleeding. Beta-hCG has dropped from 6223-1911 Hemoglobin stable at this point. Patient sent for repeat ultrasound. Gram of Tylenol given. Reevaluate 07/20/20 12:55 Repeat ultrasound again shows 2 intrauterine sacs without evidence of heartbeats. Given that the beta-hCG is also dropping, likely impending miscarriage We will discharge home to follow-up with OB tomorrow. I discussed the physical exam findings, ancillary test results and final diagnoses with the patient. I answered all of the patient's questions. The patient was satisfied with the care received and felt comfortable with the discharge plan and treatment plan. The Patient agrees to follow up with the primary care physician/specialist within 24-72 hours. Return precautions were given. Discharge - Discharge Information Problems reviewed: Yes Clinical Impression/Diagnosis: Inevitable Condition: Stable Disposition: HOME - Admission No - Follow up/Referral Referrals: Connie Castañeda MD [Staff Physician] - - Patient Discharge Instructions Patient Printed Discharge Instructions: DI for Miscarriage Additional Instructions: You are most likely having a miscarriage today given that you are having increasing vaginal bleeding. Your ultrasound does not show any heartbeats. Your hormone has decreased from 6600 to 5500 Please follow-up with [facility] tomorrow. A referral has been provided to you. You will most likely bleed for 4 to 7 days. If you soak more than 1 pad per hour, return to the ER for repeat blood work Return to the ER for worsening bleeding, worsening pain, fever or if you have any change in her symptoms. Lo ms probable es que tenga un aborto espontneo hoy dado que tiene un sangrado vaginal cada vez mayor. Schroeder ultrasonido no muestra ningn latido. Schroeder hormona del embarazo mckoy disminuido de 6600 a 5500 Edward un seguimiento con schroeder obstetra / gineclogo maana. Se le mckoy proporcionado zac remisin. Lo ms probable es que jung joselyn 4 a 7 jaimes. Si empapa ms de 1 toalla sanitaria por hora, regrese a la bebe de emergencias para repetir los anlisis de jung Regrese a la bebe de emergencias si el sangrado empeora, el dolor empeora, la fiebre o si tiene algn cambio en yuly sntomas. Print Language: SLOVAK - Post Discharge Activity
[2020-07-20 13:14] VITALS: BP 120/79; PULSE 73
[2020-07-20] MEDS ORDERED: SODIUM CHLORIDE 1,000 ML IV STA (13:35)
--- NOTE | 2020-07-20 13:36 | PDOC ---
*Physical Exam - Vital Signs Last Vital Signs Temp Pulse Resp BP Pulse Ox 98 F 73 19 120/79 100 07/20/20 13:00 07/20/20 13:00 07/20/20 13:00 07/20/20 13:00 07/20/20 13:00 ED Treatment Course - LABORATORY CBC & Chemistry Diagram: 07/20/20 08:30 - ADDITIONAL ORDERS Additional order review: Laboratory Results 07/20/20 08:30 Beta HCG, Quant 5665.8 07/20/20 08:30 RBC 4.62 MCV 87.2 MCHC 33.2 RDW 13.6 MPV 11.4 H Neutrophils % 77.5 Lymphocytes % 15.2 Monocytes % 5.4 Eosinophils % 1.4 Basophils % 0.5 - RADIOLOGY Radiology Studies Ordered: Category Date Time Status TRANSVAGINAL US PREG [US] Stat Ultrasound 07/20/20 10:32 Completed - Medications Given in the ED: ED Medications Discontinued Medications Generic Name Dose Route Start Last Admin Trade Name Freq PRN Reason Stop Dose Admin Acetaminophen 1,000 mg 07/20/20 09:44 07/20/20 10:12 Tylenol - PO 07/20/20 09:45 1,000 mg ONCE ONE Administration Discharge - Discharge Information Clinical Impression/Diagnosis: Inevitable Condition: Stable Disposition: HOME - Follow up/Referral Referrals: Connie Castañeda MD [Staff Physician] - - Patient Discharge Instructions Patient Printed Discharge Instructions: DI for Miscarriage Additional Instructions: You are most likely having a miscarriage today given that you are having increasing vaginal bleeding. Your ultrasound does not show any heartbeats. Your hormone has decreased from 6600 to 5500 Please follow-up with [facility] tomorrow. A referral has been provided to you. You will most likely bleed for 4 to 7 days. If you soak more than 1 pad per hour, return to the ER for repeat blood work Return to the ER for worsening bleeding, worsening pain, fever or if you have any change in her symptoms. Lo ms probable es que tenga un aborto espontneo hoy dado que tiene un sangrado vaginal cada vez mayor. Schroeder ultrasonido no muestra ningn latido. Schroeder hormona del embarazo mckoy disminuido de 6600 a 5500 Edward un seguimiento con schroeder obstetra / gineclogo maana. Se le mckoy proporcionado zac remisin. Lo ms probable es que jung joselyn 4 a 7 jaimes. Si empapa ms de 1 toalla sanitaria por hora, regrese a la bebe de emergencias para repetir los anlisis de jung Regrese a la bebe de emergencias si el sangrado empeora, el dolor empeora, la f iebre o si tiene algn cambio en yuly sntomas. Print Language: CYMRAES - Post Discharge Activity
== END 2020-07-20 13:13 | disposition home or self-care (01) ==
LOC: JER 09:06
PROC: 3E0337Z Introduction of Electrolytic and Water Balance Substance into Peripheral Vein, Percutaneous Approach (ICD-10-PCS; principal; 2020-07-20)
DX: O03.9 Complete or unspecified spontaneous abortion without complication (principal)
CPT/HCPCS: 36415; 76817-TC; 84702; 85025; 96360; 99284-25

== ENCOUNTER 2020-07-20 13:38 | Emergency (ER) | payer OTHER ==
[2020-07-20 13:45] VITALS: TEMP 98; BMI 32.2
[2020-07-20] MEDS ORDERED: LACTATED RINGERS SOLUTION 1000 ML INFUS.BAG IV ONE (14:00)
[2020-07-20 14:19] LABS: BASO % 0.7 % (0-2.0); EOS % 0.6 % (0-4.5); HEMATOCRIT 37.8 % (32.4-45.2); HEMOGLOBIN 12.5 GM/dL (10.7-15.3); LYMPH % 10.6 % (8-40); MCH 28.7 pg (25.7-33.7); MEAN CELL VOLUME 86.9 fl (80-96); MEAN PLT VOLUME 11.5 fl (7.5-11.1); MONO % 4.8 % (3.8-10.2); NEUT % 83.3 % (42.8-82.8); PLATELET COUNT 179 K/MM3 (134-434); RBC 4.35 M/mm3 (3.60-5.2); RDW 13.4 % (11.6-15.6); WHITE BLOOD COUNT 12.7 K/mm3 (4.0-10.0)
[2020-07-20 14:24] LABS: INR 1.08 (0.83-1.09); PROTHROMBIN TIME (PATIENT) 12.8 SEC (9.7-13.0)
--- NOTE | 2020-07-20 14:25 | PDOC ---
*Physical Exam - Vital Signs Last Vital Signs Temp Pulse Resp BP Pulse Ox 98 F 78 17 130/76 98 07/20/20 13:42 07/20/20 14:14 07/20/20 14:14 07/20/20 13:42 07/20/20 14:14 - Physical Exam General Appearance: Yes: Nourished, Appropriately Dressed. No: Apparent Distress (now resting comfortably) Respiratory/Chest: positive: Lungs Clear, Normal Breath Sounds. negative: Respiratory Distress, Accessory Muscle Use Cardiovascular: positive: Regular Rhythm, Regular Rate, S1, S2 (present). negative: Murmur Female Pelvic Exam: positive: normal external exam, vaginal bleeding (red with some clots). negative: cervical os closed, adnexal tenderness Gastrointestinal/Abdominal: positive: Normal Bowel Sounds, Flat, Soft. negative: Tender Extremity: positive: Normal Capillary Refill, Normal Inspection Integumentary: positive: Normal Color, Dry, Warm Neurologic: positive: Fully Oriented, Alert, Normal Mood/Affect, Normal Response ED Treatment Course - LABORATORY CBC & Chemistry Diagram: 07/20/20 15:18 - ADDITIONAL ORDERS Additional order review: Laboratory Results 07/20/20 14:00 PT with INR 12.80 INR 1.08 07/20/20 14:00 RBC 4.35 MCV 86.9 MCHC 33.0 RDW 13.4 MPV 11.5 H Neutrophils % 83.3 H Lymphocytes % 10.6 D Monocytes % 4.8 Eosinophils % 0.6 Basophils % 0.7 - Medications Given in the ED: ED Medications Discontinued Medications Generic Name Dose Route Start Last Admin Trade Name Freq PRN Reason Stop Dose Admin Lactated Ringer's 1,000 ml 07/20/20 14:00 07/20/20 14:13 Lactated Ringers Solution IV 07/20/20 14:01 1,000 ml ONCE ONE Administration Medical Decision Making - Medical Decision Making 07/20/20 14:50 Patient [id number]-year-old , re-presenting to the ER after discharge with increased vaginal bleeding. Pt never left the ER floor because she was concerned about the bleeding. She states she is soaked 2 pads in the past hour and states that the blood is bright red she is concerned and having increasing pain. A/P: Miscarriage Repeat pelvic exam shows brisk red blood from the vaginal canal. Repeat CBC drawn, hemoglobin is now 12 down from [address] Castañeda paged, recommends repeating the CBC to evaluate for excessive vaginal bleeding. Will call her with update. Morphine given for pain Reevaluate 07/20/20 15:10 Per nursing patient passed large clots while they were changing her adult diaper. Likely that patient has passed the fetuses. 07/20/20 17:[address] Castañeda from [facility]. Explained that patient passed large clots consistent with a miscarriage and that repeat pelvic exam shows decreased blood in the vault with some clots. Given that patient's hemoglobin is now stable at 12 and her vital signs are stable, and pelvic exam has improved in amount of blood, recommending Methergine right aid uterine contraction and have the patient follow-up in her office within the week. Methergine given to the patient and observed for another half hour. No increased bleeding. We will discharge home with strict return precautions. I discussed the physical exam findings, ancillary test results and final diagnoses with the patient. I answered all of the patient's questions. The patient was satisfied with the care received and felt comfortable with the discharge plan and treatment plan. The Patient agrees to follow up with the primary care physician/specialist within 24-72 hours. Return precautions were given. Discharge - Discharge Information Problems reviewed: Yes Clinical Impression/Diagnosis: Miscarriage Condition: Stable Disposition: HOME - Admission No - Follow up/Referral Referrals: Connie Castañeda MD [Staff Physician] - - Patient Discharge Instructions Patient Printed Discharge Instructions: DI for Miscarriage Additional Instructions: You most likely had a miscarriage while you are in the emergency department today. You are going to continue to bleed. Please follow-up with [facility] this week. A referral has been provided to you. Call the phone number tomorrow to make an appointment. Return to the ER for worsening vaginal bleeding, increasing pain, fever or have any change in her symptoms Lo ms probable es que haya tenido un aborto espontneo mientras se encuentra en el departamento de emergencias hoy. Vas a seguir sangrando. Edward un seguimiento con hart obstetra / gineclogo esta semana. Se le mckoy proporci onado zac remisin. Llame al nmero de telfono maana para concertar zac kwasi. Regrese a la bebe de emergencias por empeoramiento del sangrado vaginal, aumento del dolor, fiebre o cualquier cambio en yuly sntomas Print Language: SL[place] - Post Discharge Activity
[2020-07-20 14:26] LABS: ACTIVATED PTT 32.8 SECONDS (25.2-36.5)
[2020-07-20] MEDS ORDERED: morphine CARPU-JECT 2 MG/1 ML DISP.SYRIN IVPUSH ONE (15:06)
[2020-07-20] MEDS ORDERED: ACETAMINOPHEN 1000 MG/100 ML VIAL (NON FORMULARY) IVPB ONE (15:06)
[2020-07-20] MEDS ORDERED: MORPHINE SULFATE 2 MG/ML VIAL ONE (15:18)
[2020-07-20] MEDS ORDERED: ACETAMINOPHEN INJECTION 100 ML IVPB ONE (15:18)
[2020-07-20 15:38] LABS: BASO % 0.4 % (0-2.0); EOS % 0.3 % (0-4.5); HEMATOCRIT 36.4 % (32.4-45.2); HEMOGLOBIN 12.2 GM/dL (10.7-15.3); LYMPH % 12.1 % (8-40); MCH 29.5 pg (25.7-33.7); MCHC 33.4 g/dl (32.0-36.0); MEAN CELL VOLUME 88.3 fl (80-96); MEAN PLT VOLUME 11.6 fl (7.5-11.1); MONO % 5.2 % (3.8-10.2); PLATELET COUNT 180 K/MM3 (134-434); RBC 4.13 M/mm3 (3.60-5.2); RDW 13.5 % (11.6-15.6); WHITE BLOOD COUNT 13.9 K/mm3 (4.0-10.0)
[2020-07-20] MEDS ORDERED: METHYLERGONOVINE MALEATE 0.2 MG/1 ML AMP IM ONE (17:09)
[2020-07-20 17:52] VITALS: BP 110/69; PULSE 79
== END 2020-07-20 18:43 | disposition home or self-care (01) ==
LOC: JER 13:38
PROC: 3E033NZ Introduction of Analgesics, Hypnotics, Sedatives into Peripheral Vein, Percutaneous Approach (ICD-10-PCS; principal; 2020-07-20)
PROC: 3E033GC Introduction of Other Therapeutic Substance into Peripheral Vein, Percutaneous Approach (ICD-10-PCS; 2020-07-20)
PROC: 3E023NZ Introduction of Analgesics, Hypnotics, Sedatives into Muscle, Percutaneous Approach (ICD-10-PCS; 2020-07-20)
DX: O03.9 Complete or unspecified spontaneous abortion without complication (principal)
CPT/HCPCS: 36415; 85025; 85610; 85730; 86850; 86900; 86901; 96372; 96374; 96375; 99284-25; J0131